=== PATIENT | female | born 1950 | race Hispanic/Latino ===

== ENCOUNTER 2017-08-08 06:08 | Observation (INO) | payer OTHER ==
[2017-08-03 13:39] VITALS: BMI 31.9
[2017-08-08] MEDS ORDERED: Morphine 1 mg/ml preservative-free Inj(Duramorph) ONE (07:22)
[2017-08-08] MEDS ORDERED: Bupivacaine HCl 0.5% PF (30 ml) Inj ONE (07:22)
[2017-08-08] MEDS ORDERED: Absorbable Gelatin Sponge Size 100 ONE (07:23)
[2017-08-08] MEDS ORDERED: EPINEPHrine 1 mg/ml (1:1000) Inj ONE (07:23)
[2017-08-08] MEDS ORDERED: Thrombin Topical 5,000 Int Units Spray Kit ONE (07:23)
[2017-08-08] MEDS ORDERED: Lidocaine 1% w Epi 1:100,000 Inj ONE (07:36)
[2017-08-08] MEDS ORDERED: Propofol 10 mg/ml Inj (20 ML) ONE (07:49)
[2017-08-08] MEDS ORDERED: Rocuronium 10 mg/ml (5 ml) ONE ×2 (07:50→09:26)
[2017-08-08] MEDS ORDERED: Lactated Ringer's 1,000 ML IV ONE ×2 (07:50→10:20)
[2017-08-08] MEDS ORDERED: Midazolam 2 MG/2 ML VIAL ONE (07:50)
[2017-08-08] MEDS ORDERED: ePHEDrine 50 mg/ml Inj ONE (08:26)
[2017-08-08] MEDS ORDERED: Neostigmine 1:1000 (1 mg/ml) Inj ONE (10:24)
--- NOTE | 2017-08-08 11:10 | PCM.SURG1 ---
Surgeon's Initial Post Op Note - Surgeon's Notes Surgeon: Ward Menard MD Alumni Relations Officer: Duong Joe MD; Lion Tapia PA-C Type of Anesthesia: General Endo, Block Regional Pre-Operative Diagnosis: Right shoulder severe OA Operative Findings: see op report Post-Operative Diagnosis: same as pre-op dx Operation Performed: R TSR Specimen/Specimens Removed: right shoulder humeral head and soft tissue Estimated Blood Loss: EBL {In ML}: 100 Date of Surgery/Procedure: 08/08/17 Time of Surgery/Procedure: 08:30
[2017-08-08] MEDS ORDERED: Lactated Ringer's 1,000 ML IV SCH (11:30)
--- NOTE | 2017-08-08 11:34 | PCM.ANESB1 ---
Interscalene Block - Brachial Plexus Date of Procedure: 08/08/17 Anesthesiologist: juliana Pre-Procedure Diagnosis: r total shoulder Post-Procedure Diagnosis: same Procedure Performed: Interscalene Block of Brachial Plexus Right - Procedure Interscalene Block of Brachial Plexus: This procedure was explained to the patient that it is for post-operative pain management. Consent was obtained after a thorough discussion with the patient regarding the benefits and possible complications of local anesthetic block of the Brachial Plexus at the Interscalene area. The patient was brought to the Operating Room and standard monitors were applied. Time out was held with the circulating nurse to confirm the correct surgery and appropriate block. After applying Oxygen by nasal cannula and administering IV Sedation, the patient's head was gently rotated away from the _right operative shoulder and the anterior scalene groove was carefully palpated. The ultrasound transducer was then applied to the skin in the transverse plane and the brachial plexus was visualized lateral to the carotid artery and in between the anterior and middle scalene muscles. After identification,the anterior lateral portion of the neck was prepped with Betadine solution three times and Lidocaine 1% was injected subcutaneously for topical analgesia. At this point, a # 22 gauge Stimuplex 2 inches insulated needle was inserted into the interscalene groove and directed in a caudal and midline direction. The needle was inserted lateral to the ultrasound transducer in-plane towards the brachial plexus in a [id number] direction. Needle advancement was performed carefully under direct ultrasound visualization. After repeated negative aspiration,__25___cc of____.5_,___bupivicaine were injected aUnder ultrasound guidance the local anesthetics were observed surrounding the roots of the brachial plexus. The needle was removed intact and sterile dressing was applied. The patient had stable vital signs, was conscious and in no apparent distress. The patient tolerated the interscalene block of the bracheal plexus well with stable vital signs and was prepared for subsequent surgery.
[2017-08-08] MEDS: HYDROmorphone 0.5 mg/0.5 ml ISec IVP PRN ×2 (11:35→11:55)
--- NOTE | 2017-08-08 12:27 | RAD ---
PROCEDURE: Radiographs of the Right Shoulder HISTORY: s/p RTSR COMPARISON: No prior. FINDINGS: BONES: Status post right total shoulder replacement hardware in position without fracture, subluxation or dislocation. JOINTS: The acromioclavicular joint appears intact. No definite fracture or destructive bony lesion is identified. SOFT TISSUES: Limited postoperative changes are seen in the right shoulder soft tissues. OTHER FINDINGS: None. IMPRESSION: Status post right total shoulder replacement hardware in position as discussed above.
[2017-08-08] MEDS ORDERED: Morphine 4 MG/ML VIAL IV PRN (14:01)
[2017-08-08] MEDS ORDERED: ceFAZolin 1 GM in Sodium Chloride 0.9% 100 ML IVPB ONE ×2 (15:00→21:00)
[2017-08-08] MEDS ORDERED: Albuterol HFA 90 mcg/actuation (8 g) INH PRN (15:55)
--- NOTE | 2017-08-08 16:11 | CP.PCM.HP ---
History of Present Illness - History of Present Illness History of Present Illness: This is a 66 year old female with past medical history of essential hypertension , asthma, hypothyroidism, arthritis, anxiety, who is being admitted on observation postoperatively after interscalene block of right brachial plexus. The patient states that she feels well and denies any pain after the block. She is to be placed on med/surg obs for continued monitoring overnight. Patient denies chest pain, shortness of breath, fevers, chills, nausea, vomiting, diarrhea, headache. All of the patient's questions were answered at the bedside. Present on Admission - Present on Admission Any Indicators Present on Admission: No Review of Systems - Review of Systems Review of Systems: A 12 point review of systems was conducted and found to be negative other than what was mentioned in the HPI. Past Patient History - Infectious Disease Hx of Infectious Diseases: None - Past Medical History & Family History Past Medical History?: Yes - Past Social History Smoking Status: Never Smoked - CARDIAC Hx Cardiac Disorders: Yes Hx Hypertension: Yes Hx Hypotension: Yes - PULMONARY Hx Respiratory Disorders: No Hx Asthma: Yes - NEUROLOGICAL Hx Neurological Disorder: No - HEENT Hx HEENT Problems: No - RENAL Hx Chronic Kidney Disease: No - ENDOCRINE/METABOLIC Hx Endocrine Disorders: No Hx Hypothyroidism: Yes - HEMATOLOGICAL/ONCOLOGICAL Hx Blood Disorders: No - INTEGUMENTARY Hx Dermatological Problems: No - MUSCULOSKELETAL/RHEUMATOLOGICAL Hx Musculoskeletal Disorders: Yes Hx Arthritis: Yes (shoulder) - GASTROINTESTINAL Hx Gastrointestinal Disorders: No - GENITOURINARY/GYNECOLOGICAL Hx Genitourinary Disorders: No - PSYCHIATRIC Hx Psychophysiologic Disorder: No Hx Anxiety: Yes Hx Substance Use: No - SURGICAL HISTORY Hx Surgeries: No - ANESTHESIA Hx Anesthesia: No Hx Anesthesia Reactions: No Hx Malignant Hyperthermia: No Has any member of the family had a problem w/ anesthesia?: No Meds Allergies/Adverse Reactions: Allergies Allergy/AdvReac Type Severity Reaction Status Date / Time codien Allergy RASH Uncoded 11/12/15 08:01 Physical Exam - Additional Findings Additional findings: Physical exam: Constitutional- cooperative, awake, alert Head- NCAT, PERRL Eye- PERRL, EOMI ENT- normal exam, MMM. Neck- normal inspection, supple, no JVD Respiratory- CTAB, no wheezes rales rhonchi Cardiovascular- RRR, +S1, +S2 no MRG GI/Abdominal- normal bowel sounds, soft, no mass, no hsm Skin- warm, dry Extremities Exam- + Right shoulder cast. normal capillary refill, normal inspection Neurological Exam- alert, awake, oriented Psych- normal mood, normal affect Results - Vital Signs Recent Vital Signs: Last Vital Signs Temp 97.6 F 08/08/17 15:41 Pulse 84 08/08/17 15:41 Resp 18 08/08/17 15:41 BP 160/91 H 08/08/17 15:41 Pulse Ox 96 08/08/17 15:41 - Labs Labs: Laboratory Results - last 24 hr 08/08/17 08/08/17 07:00 08:00 Blood Type A POSITIVE Blood Type Confirm A POSITIVE Antibody Screen Negative BBK History Checked No verified bt Assessment & Plan - Assessment and Plan (Free Text) Plan: ASSESSMENT/PLAN 1) S/p right sided interscalene block of right brachial plexus - Place on med/surg observation - Monitoring of vitals - Pain control with ibuprofen and tramadol PRN - Regular diet - Likely to discharge in AM 2) Hypertension - Continue Diovan 320 mg po daily - Continue HCTZ 25 mg po daily 3) Asthma - Continue Albuterol HFA 4) Hypothyroidism - 175 mcg po daily 5) DVT prophylaxis - SCDs
--- NOTE | 2017-08-08 18:57 | OP ---
PROCEDURE DATE: 08/08/2017 ATTENDING PHYSICIAN: Ward Menard MD LOSS CONTROL CONSULTANT: Duong Joe MD PREOPERATIVE DIAGNOSIS: Right shoulder osteoarthritis. POSTOPERATIVE DIAGNOSIS: Right shoulder osteoarthritis. PROCEDURE: Right total shoulder replacement. IMPLANTS: Medium size glenoid, size 13 stem, and size 44 head. ESTIMATED BLOOD LOSS: 200 mL. TYPE OF ANESTHESIA: General. COMPLICATIONS: None. HISTORY: The patient is a 66-year-old female who was seen with a longstanding history of right shoulder pain. X-rays and MRI showing an advanced osteoarthritis with both glenoid and humeral head osteophytes. At present, the patient with different treatment options of both operative versus nonoperative management. After careful consideration, the patient opted to proceed with the surgical option. I reviewed the risks and benefits of the surgery with the patient. The risks included, but are not limited to bleeding, infection, nerve vessel damage, continued pain, stiffness and dislocation, instability, iatrogenic fractures, loosening of hardware, and need for further surgery among other. The patient fully understood the risks and benefits and opted to proceed. DESCRIPTION OF PROCEDURE: On the day of the surgery, the patient was admitted to preoperative holding area. A laterality sheet was completed, confirming the patient's right shoulder to be correct operative site and right shoulder was marked. She underwent general anesthesia. She was given appropriate prophylactic antibiotics. The right shoulder was draped and prepped in standard sterile fashion. First, a time-out was completed confirming the patient's right shoulder to be the correct operative site. A 10-cm incision was marked over the deltopectoral interval. The skin was incised using 10 blade. The hemostasis was maintained using electrocautery. The cephalic vein was identified and mobilized laterally and the interval between the deltoid and pectoralis major was identified. Next, the clavipectoral fascia and the subscapularis tendon was identified. All the bleeding vessels were coagulated and using the biceps was identified and also tenodesed using #2 FiberWire suture to the superior portion of the pectoralis major using electrocautery. The subscapularis anatomy was performed. The humeral head was exposed and multiple osteophytes that were removed using the guide and the patient's anatomic landmark. The anatomic neck cut was made and the head size was determined to be 44 using the canal finder. The canal was reamed and broached manually until the size 13 stem was to provide adequate fit and coverage and size 13 stem was impacted and securely fixed into the humeral shaft. Next, the attention was given to the glenoid using standard 360-degree releases. The glenoid was exposed using multiple retractors and all the soft tissue remnant and labrum was removed. Next using the drill hole, a central drill hole was made and additional 3 peg holes are also drilled using the guide. Using the reamer, the glenoid was reamed to decorticate all the sclerotic surfaces and it was noted size medium glenoid to provide adequate coverage for this patient. Afterwards using epinepherine soaked sponges, meticulous hemostasis was maintained. Next, the cement was mixed and medium-size glenoid was impacted with the cage and cement for fixation. Next, the humerus was once again dislocated and using a trial with 44 mm offset was secured and shoulder was relocated taken through range of motion, it was noted 44 size head provided adequate coverage and tension. Next, once again the head was dislocated, the 44 mm implant was securely fixed onto the humeral shaft, the head was once again relocated taken through range of motion and found to have adequate mobility and tension. Next, the wound was copiously irrigated using Aricept and pulse lavage, all the loose bodies and debris was removed. The subscapularis was repaired with drill holes and also sutures to the subscapularis tendon with #5 FiberWire. The rotator interval was also closed, the deltopectoral fascia was also closed and the skin was closed in a standard manner. Sterile dressing was applied. The patient was extubated. She was placed in a shoulder immobilizer. Postoperative instructions included only pendulum exercise and limited range of motion. There were no complications or surgeries. Dr. Duong Joe is a board certified orthopedic surgeon who was present for the entirety of the case. His participation was crucial in patient positioning, protecting critical neurovascular structure, and correct placement of the implant with successful completion of the surgery. Ward Menard MD PAMELA
--- NOTE | 2017-08-08 21:04 | CARD ---
APPROVED REPORT EKG Measurement Heart [id number] <Conclusion> Normal sinus rhythm Nonspecific T wave abnormality Abnormal ECG
[2017-08-09 03:33] VITALS: O2SAT 96
[2017-08-09 06:46] LABS: BLOOD UREA NITROGEN 10 mg/dl (7-17); CALCIUM 9.8 mg/dL (8.4-10.2); GFR AFRICAN-AMERICAN > 60; GFR NON-AFRICAN AMERICAN > 60
[2017-08-09 06:50] LABS: HEMOGLOBIN 12.7 g/dL (12.0-16.0); LYMPH # 1.3 K/uL (1.0-4.3); LYMPH % 8.8 % (20.0-40.0); MEAN CELL VOLUME 84.7 fl (81.0-99.0); MEAN CORPUSCULAR HEMOGLOBIN 28.8 pg (27.0-31.0); MONO % 6.8 % (0.0-10.0); NEUT # 12.4 K/uL (1.8-7.0); NEUT % 84.4 % (50.0-75.0); PLATELET COUNT 210 K/uL (130-400); RED CELL DISTRIBUTION WIDTH 13.6 % (11.5-14.5); WHITE BLOOD COUNT 14.7 K/uL (4.8-10.8)
--- NOTE | 2017-08-09 08:27 | CP.PCM.PN ---
Subjective - Date & Time of Evaluation Date of Evaluation: 08/09/17 Time of Evaluation: 08:25 - Subjective Subjective: Patient seen and examined with Dr. Menard Patient states she has minimal pain at this time. Shoulder immobilizer is comfortable. No new complaints. Objective - Vital Signs/Intake and Output Vital Signs (last 24 hours): Temp Pulse Resp BP Pulse Ox 98.6 F 79 20 164/83 H 96 08/09/17 03:32 08/09/17 03:32 08/09/17 03:32 08/09/17 03:32 08/09/17 03:32 - Medications Medications: Current Medications Acetaminophen (Tylenol 325mg Tab) 325 mg PO Q4 PRN PRN Reason: pain1-3 Albuterol (Ventolin Hfa 90 Mcg/Actuation (8 G)) 2 puff INH DAILY PRN PRN Reason: Allergy symptoms Alprazolam (Xanax) 0.5 mg PO DAILY [facility] Aspirin (Aspirin) 325 mg PO DAILY [facility] Hydrochlorothiazide (Hydrodiuril) 25 mg PO DAILY [facility] Last Admin: 08/08/17 17:47 Dose: 25 mg Ibuprofen (Motrin Tab) 600 mg PO Q6 PRN PRN Reason: Pain, Mild (1-3) Levothyroxine Sodium (Synthroid) 175 mcg PO DAILY@0630 [facility] Morphine Sulfate (Morphine) 1 mg IV Q6 PRN PRN Reason: pain7-10 Ondansetron HCl (Zofran Inj) 4 mg IVP Q4 PRN PRN Reason: Nausea/Vomiting Last Admin: 08/08/17 22:23 Dose: 4 mg Tizanidine HCl (Zanaflex) 4 mg PO Q8 PRN PRN Reason: Muscle spasm Tramadol HCl (Ultram) 50 mg PO Q4 PRN PRN Reason: pain4-6 Valsartan (Diovan) 320 mg PO DAILY [facility] Last Admin: 08/08/17 17:47 Dose: 320 mg - Labs Labs: 08/09/17 05:30 08/09/17 05:30 - Constitutional Appears: Well - Respiratory Exam Respiratory Exam: NORMAL BREATHING PATTERN - Extremities Exam Additional comments: RUE: decreased sensation due to block +radial pulse shoulder immob intact Assessment and Plan (1) Primary osteoarthritis of right shoulder Assessment & Plan: POD#1 s/p right total shoulder replacement -orthopedically stable for d/c home today -rx for PT and protocol given -continue immob at all times -instructed pt to avoid shoulder extension with pillows -d/c home today after PT/OT -f/u in office approx 10 days call for appt -d/w Dr. Menard, agrees with above Status: Acute
[2017-08-09] MEDS ORDERED: Potassium Chloride 20 mEq ER Tab PO ONE (08:37)
[2017-08-09] MEDS ORDERED: Levothyroxine 175 MCG TAB PO SCH (09:00)
--- NOTE | 2017-08-09 09:30 | CP.PCM.DIS ---
Provider - Provider Date of Admission: 08/08/17 12:22 Attending physician: Krystian Perry DO Primary care physician: Toby Romeo MD Time Spent in preparation of Discharge (in minutes): 30 Diagnosis - Discharge Diagnosis (1) Primary osteoarthritis of right shoulder Status: Acute Hospital Course - Lab Results Lab Results: Most Recent Lab Values WBC 14.7 K/uL (4.8-10.8) H 08/09/17 05:30 RBC 4.40 Mil/uL (3.80-5.20) 08/09/17 05:30 Hgb 12.7 g/dL (12.0-16.0) 08/09/17 05:30 Hct 37.3 % (34.0-47.0) 08/09/17 05:30 MCV 84.7 fl (81.0-99.0) 08/09/17 05:30 MCH 28.8 pg (27.0-31.0) 08/09/17 05:30 MCHC 34.0 g/dL (33.0-37.0) 08/09/17 05:30 RDW 13.6 % (11.5-14.5) 08/09/17 05:30 Plt Count 210 K/uL (130-400) 08/09/17 05:30 MPV 10.0 fl (7.2-11.7) 08/09/17 05:30 Neut % (Auto) 84.4 % (50.0-75.0) H 08/09/17 05:30 Lymph % (Auto) 8.8 % (20.0-40.0) L 08/09/17 05:30 Churchill % (Auto) 6.8 % (0.0-10.0) 08/09/17 05:30 Eos % (Auto) 0.0 % (0.0-4.0) 08/09/17 05:30 Baso % (Auto) 0.0 % (0.0-2.0) 08/09/17 05:30 Neut # (Auto) 12.4 K/uL (1.8-7.0) H 08/09/17 05:30 Lymph # (Auto) 1.3 K/uL (1.0-4.3) 08/09/17 05:30 Churchill # (Auto) 1.0 K/uL (0.0-0.8) H 08/09/17 05:30 Eos # (Auto) 0.0 K/uL (0.0-0.7) 08/09/17 05:30 Baso # (Auto) 0.0 K/uL (0.0-0.2) 08/09/17 05:30 Sodium 142 mmol/l (132-148) 08/09/17 05:30 Potassium 3.1 MMOL/L (3.6-5.0) L 08/09/17 05:30 Chloride 99 mmol/L (98-107) 08/09/17 05:30 Carbon Dioxide 29 mmol/L (22-30) 08/09/17 05:30 Anion Gap 17 (10-20) 08/09/17 05:30 BUN 10 mg/dl (7-17) 08/09/17 05:30 Creatinine 0.6 mg/dl (0.7-1.2) L 08/09/17 05:30 Est GFR ( Amer) > 60 08/09/17 05:30 Est GFR (Non-Af Amer) > 60 08/09/17 05:30 Random Glucose 123 mg/dL (65-105) H 08/09/17 05:30 Calcium 9.8 mg/dL (8.4-10.2) 08/09/17 05:30 Blood Type A POSITIVE 08/08/17 07:00 Blood Type Confirm A POSITIVE 08/08/17 08:00 Antibody Screen Negative 08/08/17 07:00 BBK History Checked No verified bt 08/08/17 07:00 - Hospital Course Hospital Course: 66 year old female with past medical history of essential hypertension, asthma, hypothyroidism, arthritis, anxiety, who is being admitted on observation postoperatively after interscalene block of right brachial plexus. The patient states that she feels well and denies any pain after the block. She is to be placed on med/surg obs for continued monitoring overnight. Patient denies chest pain, shortness of breath, fevers, chills, nausea, vomiting, diarrhea, headache. All of the patient's questions were answered at the bedside. Pt seen and eval by ortho, stable for dc home with follow up ortho and pcp in one week. 1) S/p right sided interscalene block of right brachial plexus - Place on med/surg observation - Monitoring of vitals - Pain control with ibuprofen and tramadol PRN - Regular diet - Likely to discharge in AM 2) Hypertension - Continue Diovan 320 mg po daily - Continue HCTZ 25 mg po daily 3) Asthma - Continue Albuterol HFA 4) Hypothyroidism - 175 mcg po daily 5) DVT prophylaxis - SCDs Discharge Exam - Head Exam Head Exam: ATRAUMATIC, NORMOCEPHALIC - Eye Exam Eye Exam: EOMI, Normal appearance, PERRL Pupil Exam: NORMAL ACCOMODATION - ENT Exam ENT Exam: Mucous Membranes Moist, Normal Oropharynx - Respiratory Exam Respiratory Exam: Clear to PA & Lateral, NORMAL BREATHING PATTERN - Cardiovascular Exam Cardiovascular Exam: RRR, +S1, +S2 - GI/Abdominal Exam GI & Abdominal Exam: Normal Bowel Sounds, Soft. absent: Organomegaly, Tenderness - Extremities Exam Extremities exam: normal capillary refill, pedal pulses present - Back Exam Back exam: absent: CVA tenderness (L), CVA tenderness (R) - Neurological Exam Neurological exam: Alert, Oriented x3 - Psychiatric Exam Psychiatric exam: Normal Affect, Normal Mood - Skin Skin Exam: Dry, Warm Discharge Plan - Discharge Medications Prescriptions: Albuterol HFA [Ventolin HFA 90 mcg/actuation (8 g)] 60 puff PO DAILY PRN #1 inhaler PRN Reason: Allergy Symptoms Alprazolam [Xanax] 0.5 mg PO DAILY #30 tablet Aspirin 325 mg PO DAILY #30 tab Levothyroxine [Synthroid] 175 mcg PO DAILY #30 tab tiZANidine [Zanaflex] 4 mg PO Q8 PRN #90 tab PRN Reason: Muscle Spasm Valsartan/Hydrochlorothiazide [Diovan Hct 320-25 mg Tablet] 25 - 320 mg PO DAILY #30 tablet - Follow Up Plan Condition: GOOD Disposition: HOME/ ROUTINE Referrals: Toby Romeo MD [Primary Care Provider] -
[2017-08-09 10:41] VITALS: BP 144/85; PULSE 90; RESP 18; TEMP 98.5
[2017-08-09 13:00] LABS: LYMPHOCYTE 4 % (20-50); MONOCYTE 5 % (0-10); NEUTROPHIL 91 % (42-75); PLATELET ESTIMATE NORMAL (NORMAL); TOTAL CELLS COUNTED 100
== END 2017-08-09 12:20 | disposition home or self-care (01) ==
LOC: H.OPSURG 06:08 → H.MEDSURG1 12:22 → INTOOBSV 12:22
PROVIDERS: ADMIT Internal Medicine; ATTEND Internal Medicine
DX: M19.011 Primary osteoarthritis, right shoulder (principal); J45.909 Unspecified asthma, uncomplicated; E03.9 Hypothyroidism, unspecified; I10 Essential (primary) hypertension; F41.9 Anxiety disorder, unspecified; Z88.6 Allergy status to analgesic agent
CPT/HCPCS: 23472; 36415; 73030; 80048; 85025; 86850; 86900; 88304; 93005; 97110; 97161; 97166; 97535; C1713; C1776; G0378; G8978; G8979; G8980; G8987; G8988; G8989; J0690; J1170; J2001; J2250; J2270; J2405; J2704; J2710; J3010; J7030; J7120